=== PATIENT | male | born 1935 | race Caucasian/White ===

== ENCOUNTER 2020-06-28 12:12 | Emergency (ER) | payer MEDICARE, OTHER ==
[~2020-06-28] VITALS: Ht 170.2 cm; Wt 100.0 kg
--- NOTE | 2020-06-28 12:24 | PHYS DOC ---
General Adult EDM: Chief Complaint: MECHANICAL FALL HPI: HPI: 84 yo M PMH A. fib on Eliquis (no ASA), hypertension, hyperlipidemia and PTSD ([place] -takes melatonin to sleep), presents to the ed bibems after fall from standing on eliquis (concrete floor) with left temporal laceration, no LOC. 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 Was not on influence of any alcohol or drugs. Patient initially seen in ambulance as of trauma, complained of left-sided headache over site of bleeding (ed CT down - ems transferred pt to [facility] for ct images after my exam). Patient reevaluated in ED and complains of left medial epicondyle elbow pain, with normal range of motion. Also reports his neck feels sore when he moves his head in multiple directions-no focal reproducible pain on exam. Review of Systems: Review of Systems: Constitutional: Denies fever or chills Eyes: Denies change in visual acuity HENT: Denies nasal congestion or sore throat Respiratory: Denies cough or shortness of breath Cardiovascular: Denies chest pain or edema GI: Denies abdominal pain, nausea, vomiting, bloody stools or diarrhea : Denies dysuria or hematuria Musculoskeletal: Denies back pain or joint deformity Integument: Denies rash or diaphoresis Neurologic: Denies neck pain, dizziness, lightheadedness, focal weakness or sensory changes Endocrine: Denies polyuria or polydipsia Lymphatic: Denies swollen glands Psychiatric: Denies depression or anxiety Physical Exam: PE: Constitutional: Well developed, well nourished, no acute distress, non-toxic a ppearance. HENT: , no hemotympanum, no mastoid ecchymosis, no periorbital ecchymosis, no septal hematoma, normal oral cavity with no bleeding/lacerations, curved abrasion just superior and anterior to left ear-no active bleeding Eyes: PERRLA, EOMI, conjunctiva normal, no discharge, No hyphema Neck: Normal range of motion, supple, no midline tenderness Cardiovascular: S1/2 present, irregular rhythm Lungs & Thorax: Speaking in full sentences, bilateral equal chest rise, no tachypnea or increased work of breathing, no rib pain Abdomen: soft, no tenderness, no hip pain, ambulatory in no distress, no peritonitis or guarding, obese abdomen Skin: Warm, dry, no erythema, no rash. [] Back: No midline spinal tenderness or step-offs, no CVA tenderness. [] Extremities: No tenderness, no cyanosis, no lower extremity edema, focal left medial epicondyle pain with no deformity/abrasion/swelling Neurologic: Cranial nerves II through XII intact, GCS 15, normal motor function, normal sensory function, no focal deficits noted. [] Psychologic: Affect normal, judgement normal, mood normal. [] Nexus C-spine criteria are negative: There is no post midline tenderness, the patient is not intoxicated, there is a normal level of alertness, there are no focal neurologic deficits and there are no distracting injuries. EKG: EKG: Irregular rhythm atrial fibrillation at 60 bpm, left axis deviation, normal intervals, no T wave inversions, no ST elevations or ST depressions Radiology/Procedures: Radiology/Procedures: IMAGING REPORT Signed PATIENT: FARIHA HYMAN ACCOUNT: [id number] : 1935 LOCATION: ER AGE: 84 SEX: M EXAM STATUS: REG ER ORD. PHYSICIAN: YARITZA LIMA DO REASON: s/p fall on eliquis with head lcaeration, c/o headache PROCEDURE: CT HEAD AND CERVICAL SPINE WO EXAMINATION: CT HEAD AND C-SPINE WO CLINICAL HISTORY: Fall with head laceration, on Eliquis. C/o headache TECHNIQUE: Serial axial images without IV contrast were obtained from the vertex to the foramen magnum. CT of the cervical spine without IV contrast. Spiral, high resolution axial images were obtained from the skull base to the cervicothoracic junction with sagittal and coronal planar reconstructions. CT Dose Reduction Employed: One or more of the following individualized dose reduction techniques were utilized for this examination: 1. Automated exposure control 2. Adjustment of the mA and/or kV according to patient size 3. Use of iterative reconstruction technique. COMPARISON: None FINDINGS: BRAIN: Acute Change: Mild subcutaneous edema and small hematoma along the left parietal and temporal scalp. No evidence of an acute contusion or other acute parenchymal process. Hemorrhage: No evidence of acute intracranial hemorrhage. Mass Lesion/Mass Effect: No evidence of intracranial mass or extraaxial fluid collection. No significant mass effect. Chronic Change: Scattered patchy foci of hypoattenuation in the supratentorial white matter, nonspecific but likely represents mild microvascular ischemia. Atherosclerotic calcification of the anterior and posterior circulation. Parenchyma: Mild generalized volume loss. Parenchyma otherwise within normal limits for age. Ventricles: Ventricular enlargement concordant with degree of parenchymal volume loss. Paranasal Sinuses and Skull Base: Secretions and mucoperiosteal thickening in the right frontal, ethmoid, and right maxillary sinuses. No evidence of acute calvarial fracture. C-SPINE: Straightening normal cervical lordosis, likely positional. No evidence of acute fracture or spondylolisthesis. C1 only visualized on axial images between the brain and C-spine series, but C1 appears grossly intact. Multilevel degenerative disc disease greatest at C3-4 and C5-6. Moderate to severe multilevel facet arthropathy and neural foraminal narrowing. No evidence of significant osseous spinal stenosis. No prevertebral soft tissue swelling. Bilateral carotid and aortic atherosclerotic calcification. IMPRESSION: Mild subcutaneous edema and small hematoma left parietal and temporal scalp. No evidence of acute intracranial abnormality. Multifocal paranasal sinus disease as described. No evidence of acute osseous abnormality involving the cervical spine. Multilevel cervical degenerative disc disease, greatest at C3-4 and C5-6. Moderate to severe multilevel neural foraminal narrowing and facet arthropathy. Electronically signed by: Austin Hernández DO (06/28/2020 12:51 PM) [id number] DICTATED AND SIGNED BY: AUSTIN HERNÁNDEZ DO DATE: 06/28/20 1239 CC: PCP,NO; YARITZA LIMA DO ~MTH0 0 IMAGING REPORT Signed PATIENT: FARIHA HYMAN ACCOUNT: [id number] : 1935 LOCATION: ER AGE: 84 SEX: M EXAM STATUS: REG ER ORD. PHYSICIAN: YARITZA LIMA DO REASON: fall PROCEDURE: CHEST AP ONLY XR CHEST 1V 06/28/2020 12:45 PM INDICATION: Fall COMPARISON: None available TECHNIQUE: Portable frontal view of the chest is provided. FINDINGS: The cardiomediastinal silhouette is within normal limits. Lungs are clear. There are no significant pleural effusions. There is no pulmonary vascular congestion. No pneumothorax. No suspicious osseous abnormality. IMPRESSION: There is no acute cardiopulmonary process. Electronically signed by: Karina Perrin MD (06/28/2020 12:49 PM) [id number] DICTATED AND SIGNED BY: KARINA PERRIN MD DATE: 06/28/20 1249 CC: PCP,NO; YARITZA LIMA DO ~MTH0 0 IMAGING REPORT Signed PATIENT: FARIHA HYMAN ACCOUNT: [id number] : 1935 LOCATION: ER AGE: 84 SEX: M EXAM STATUS: REG ER ORD. PHYSICIAN: YARITZA LIMA DO REASON: fall on eliquis PROCEDURE: ELBOW LEFT 3V LEFT ELBOW AP LATERAL AND OBLIQUE Clinical Indication: Reason: fall, on eliquis / Comparison: None. Findings: There is no acute fracture or dislocation. No evidence of joint effusion. There is no radiopaque foreign body. No radiographically apparent soft tissue swelling is identified. IMPRESSION: No acute fracture or dislocation. Electronically signed by: Kin Richard MD (06/28/2020 1:56 PM) [facility] DICTATED AND SIGNED BY: KIN RICHARD MD DATE: 06/28/20 1354 CC: PCP,NO; YARITZA LIMA DO ~MTH0 0 Heart Score: Risk Factors: Risk Factors: DM, Current or recent (<one month) smoker, HTN, HLP, family history of CAD, obesity. Risk Scores: Score 0 - 3: 2.5% MACE over next 6 weeks - Discharge Home Score 4 - 6: 20.3% MACE over next 6 weeks - Admit for Clinical Observation Score 7 - 10: 72.7% MACE over next 6 weeks - Early Invasive Strategies Course & Med Decision Making: Course & Med Decision Making Pertinent Labs and Imaging studies reviewed. (See chart for details) Concern for accidental fall on ice with blunt head injury and hemostasis-did not require any suturing or kaleb. Left medial elbow pain, suspect contusion with from. No midline neck pain on reevaluation. Declines tetanus - recommended update with pmd. Will discharge home with strict ED return precautions were given for confusion, lethargy, severe headache, persistent nausea or vomiting or neurologic deficits-pt reports he will have someone observe him the next 24 hours and was educated on delayed ICH -understands return precautions. Encouraged urgent outpatient follow-up with PMD and neurology-if patient should develop persistent headaches/difficulties concentrating/concussive symptoms. Life-threatening processes were considered but are low suspicion at this time, given history, physical exam and ED workup. Pt was educated on all prescription medications and adverse effects. All patient's questions were answered and pt was stable at time of discharge. Life/limb-threatening differential includes but is not limited to, intracranial hemorrhage, diffuse axonal injury, spinal cord syndrome, unstable cervical fracture or SCIWORA, fractures or joint dislocations, neurovascular injuries, organ injury or laceration, pneumothorax, pneumoperitoneum, pericardial ta mponade, unstable pelvic fracture, compartment syndrome, flail chest or respiratory distress, burn injury or asphyxiation I spoken with the patient and her caregivers. I explained the patient's condition, diagnoses and treatment plan based on the information available to me at this time. I have answered the patient and her caregiver's questions and addressed any concerns. The patient and her caregivers have a good understanding of patient's diagnosis, condition and treatment plan as can be expected at this point. Vital signs have been stable. Patient's condition is stable and appropriate for discharge from the emergency department. Patient will pursue further outpatient evaluation with primary care physician or other designated or consulting physician as outlined in the discharge instructions. The patient and/or caregivers are agreeable to this plan of care and follow-up instructions have been explained in detail. The patient and/or caregivers have received these instructions in written form and have expressed an understanding of the discharge instructions. The patient and/or caregivers are aware that any significant change of condition or worsening of symptoms should prompt immediate return to this or the closest emergency department or call to 911. Derrick Disclaimer: Derrick Disclaimer: This electronic medical record was generated, in whole or in part, using a voice recognition dictation system. Departure Departure: Impression: Primary Impression: Blunt head trauma Additional Impressions: Fall from slipping on ice Elbow pain, left Abrasion of head Disposition: 01 DC HOME SELF CARE/HOMELESS Condition: STABLE Referrals: HERBER LAURENT MD FOLLOW UP WITH FAMILY MEDICINE: [facility], [address] [place] [address] [facility] [address] [facility] [place], Patient Instructions: Abrasion, [id number], Concussion and Brain Injury, Elbow Contusion, Head Injury, Adult Additional Instructions: FOLLOW UP WITH NEUROLOGY: Edwin Briones MD [address] [facility], [address] [place] [address] OR [address] [place] [address] EMERGENCY DEPARTMENT GENERAL DISCHARGE INSTRUCTIONS Thank you for coming to [facility] (ED) today and trusting us with you care. We trust that you had a positivie experience in our Emergency Department. If you wish to speak to the department management, you may call the director at [phone]. YOUR FOLLOW UP INSTRUCTIONS ARE FOLLOWS: 1. Do you have a private Doctor? If you do not have a private doctor, please ask for a resource list of physicians or clinics that may be able to assist you with f ollow up care. 2. The Emergency Physician has interpreted your x-rays. The X-Ray specialist will also review them. If there is a change in the findings, you will be notified in 48 hours when at all possible. 3. A lab test or culture has been done, your results will be reviewed and you will be notified if you need a change in treatment. ADDITIONAL INSTRUCTIONS AND INFORMATION: 1. Your care today has been supervised by a physician who is specially trained in emergency care. Many problems require more than one evaluation for a complete diagnosis and treatment. We recommend that you schedule your follow up appointment as recommended to ensure complete treatment of you illness or injury. If you are unable to obtain follow up care and continue to have a problem, or if your condition worsens, we recommend that you return to the ED. 2. We are not able to safely determine your condition over the phone nor are we able to give sound medical advice over the phone. For these safety reasons, if you call for medical advice we will ask you to come to the ED for further evaluation. 3. If you have any questions regarding these discharge instructions please call the ED at [phone]. SAFETY INFORMATION: In the interest of safety, wellness, and injury prevention; we encourage you to wear your sealbelt, if you smoke; quite smoking, and we encourage family to use a protect zoraida helmet for bicycling and other sporting events that present an increased risk for head injury. IF YOUR SYMPTOMS WORSEN OR NEW SYMPTOMS DEVELOP, OR YOU HAVE CONCERNS ABOUT YOUR CONDITION; OR IF YOUR CONDITION WORSENS WHILE YOU ARE WAITING FOR YOUR FOLLOW UP APPOINTMENT; EITHER CONTACT YOUR PRIMARY CARE DOCTOR, THE PHYSICIAN WHOSE NAME AND NUMBER YOU WERE GIVEN, OR RETURN TO THE ED IMMEDIATELY. [facility] DO Jun 28, 2020 12:24
[2020-06-28 12:48] LABS: HEMATOCRIT 48.8 % (39.0-53.0); HEMOGLOBIN 16.1 g/dL (13.0-17.5); RED BLOOD COUNT 5.18 x10^6/uL (4.30-5.70); RED CELL DISTRIBUTION WIDTH 15.7 % (11.5-14.5); WHITE BLOOD COUNT 8.6 x10^3/uL (4.0-11.0)
--- NOTE | 2020-06-28 12:52 | RAD ---
XR CHEST 1V 06/28/2020 12:45 PM INDICATION: Fall COMPARISON: None available TECHNIQUE: Portable frontal view of the chest is provided. FINDINGS: The cardiomediastinal silhouette is within normal limits. Lungs are clear. There are no significant pleural effusions. There is no pulmonary vascular congestion. No pneumothora x. No suspicious osseous abnormality. IMPRESSION: There is no acute cardiopulmonary process. Electronically signed by: Vernell Petersen MD (06/28/2020 12:49 PM) [id number]
--- NOTE | 2020-06-28 12:54 | RAD ---
EXAMINATION: CT HEAD AND C-SPINE WO CLINICAL HISTORY: Fall with head laceration, on Eliquis. C/o headache TECHNIQUE: Serial axial images without IV contrast were obtained from the vertex to the foramen magnum. CT of the cervical spine without IV contrast. Spiral, high resolution axial images were obtained from the skull base to the cervicothoracic junction with sagittal and coronal planar reconstructions. CT Dose Reduction Employed: One or more of the following individualized dose reduction techniques wer e utilized for this examination: 1. Automated exposure control 2. Adjustment of the mA and/or kV ac cording to patient size 3. Use of iterative reconstruction technique. COMPARISON: None FINDINGS: BRAIN: Acute Change: Mild subcutaneous edema and small hematoma along the left parietal and temporal scalp. No evidence of an acute contusion or other acute parenchymal process. Hemorrhage: No evidence of acute intracranial hemorrhage. Mass Lesion/Mass Effect: No evidence of intracranial mass or extraaxial fluid collection. No signific ant mass effect. Chronic Change: Scattered patchy foci of hypoattenuation in the supratentorial white matter, nonspeci fic but likely represents mild microvascular ischemia. Atherosclerotic calcification of the anterior and posterior circulation. Parenchyma: Mild generalized volume loss. Parenchyma otherwise within normal limits for age. Ventricles: Ventricular enlargement concordant with degree of parenchymal volume loss. Paranasal Sinuses and Skull Base: Secretions and mucoperiosteal thickening in the right frontal, ethm oid, and right maxillary sinuses. No evidence of acute calvarial fracture. C-SPINE: Straightening normal cervical lordosis, likely positional. No evidence of acute fracture or spondylol isthesis. C1 only visualized on axial images between the brain and C-spine series, but C1 appears kathy ssly intact. Multilevel degenerative disc disease greatest at C3-4 and C5-6. Moderate to severe multilevel facet a rthropathy and neural foraminal narrowing. No evidence of significant osseous spinal stenosis. No prevertebral soft tissue swelling. Bilateral carotid and aortic atherosclerotic calcification. IMPRESSION: Mild subcutaneous edema and small hematoma left parietal and temporal scalp. No evidence of acute int racranial abnormality. Multifocal paranasal sinus disease as described. No evidence of acute osseous abnormality involving the cervical spine. Multilevel cervical degenerative disc disease, greatest at C3-4 and C5-6. Moderate to severe multilevel neural foraminal narrowing and facet arthropathy. Electronically signed by: Austin Dove DO (06/28/2020 12:51 PM) [id number]
[2020-06-28 13:01] LABS: CALCIUM 9.5 mg/dL (8.5-10.1); CREATININE 1.2 mg/dL (0.7-1.3); GFR 57.8; POTASSIUM 4.4 mmol/L (3.5-5.1)
[2020-06-28 13:06] LABS: ALBUMIN 3.8 g/dL (3.4-5.0); TOTAL BILIRUBIN 1.2 mg/dL (0.2-1.0); TOTAL PROTEIN 7.8 g/dL (6.4-8.2)
--- NOTE | 2020-06-28 13:58 | RAD ---
LEFT ELBOW AP LATERAL AND OBLIQUE Clinical Indication: Reason: fall, on eliquis / Comparison: None. Findings: There is no acute fracture or dislocation. No evidence of joint effusion. There is no radiopaque foreign body. No radiographically apparent soft tissue swelling is identified. IMPRESSION: No acute fracture or dislocation. Electronically signed by: Kin Richard MD (06/28/2020 1:56 PM) [facility]
[2020-06-28 14:00] VITALS: BP 184/96
--- NOTE | 2020-06-28 16:36 | EKG ---
[address] [address] Test Date: 2020-06-28 Test Time: 12:31:08 Pat Name: FARIHA HYMAN Department: Room: Gender: M Ad Operations Coordinator: EVGENY : 1935 Requested By: YARITZA LIMA Order Number: [id number] Reading MD: Measurements Intervals [place] Rate: 60 P: OR: QRS: -24 QRSD: 98 T: 38 QT: 384 QTc: 388 Interpretive Statements IRREGULAR RHYTHM, NO P-WAVE FOUND LEFTWARD AXIS INCOMPLETE RIGHT BUNDLE BRANCH BLOCK OTHERWISE NORMAL ECG RI6.02 No previous ECG available for comparison
== END 2020-06-28 14:30 | disposition home or self-care (01) ==
LOC: ER 12:12
DX: S00.81XA Abrasion of other part of head, initial encounter (principal); I48.20 Chronic atrial fibrillation, unspecified; I10 Essential (primary) hypertension; W18.39XA Other fall on same level, initial encounter; Y93.89 Activity, other specified; Y92.89 Other specified places as the place of occurrence of the external cause; Y99.8 Other external cause status
CPT/HCPCS: 36415; 70450; 71045; 72125; 73080; 80053; 85027; 85610; 85730; 93005; 99285

== ENCOUNTER 2021-03-20 13:14 | Emergency (ER) | payer MEDICARE, OTHER ==
[~2021-03-20] VITALS: Ht 170.2 cm; Wt 86.0 kg
--- NOTE | 2021-03-20 13:42 | EKG ---
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
--- NOTE | 2021-03-20 13:45 | PHYS DOC ---
Past History Past Medical History: A-Fib, Hypertension Past Surgical History: Other Additional Past Surgical Histo: Right hip surgery, back surgery Alcohol Use: None General Adult EDM: Chief Complaint: SHORTNESS OF BREATH HPI: HPI: 85-year-old male presents with shortness of breath. The patient has not been sleeping as well notable last couple weeks. Last night he vomited at 3 and half hours of sleep. He noticed today that with exertion he feels like he just cannot get a full breath. He denies chest pain or diaphoresis. He has no diagnosed lung history. He does have atrial fibrillation. He has been taking all of his medications. Denies fever or chills. Review of Systems: Review of Systems: Constitutional: Denies fever or chills Eyes: Denies change in visual acuity HENT: Denies nasal congestion or sore throat Respiratory: shortness of breath, no cough. Cardiovascular: Denies chest pain or edema GI: Denies abdominal pain, nausea, vomiting, bloody stools or diarrhea : Denies dysuria Musculoskeletal: Denies back pain or joint pain Integument: Denies rash Neurologic: Denies headache, focal weakness or sensory changes Endocrine: Denies polyuria or polydipsia Lymphatic: Denies swollen glands Psychiatric: Poor sleep quality. Denies depression or anxiety Allergies: Allergies: Allergies Coded Allergies Type Severity Reaction Last Updated Verified oxycodone Adverse Reaction Intermediate Hallucinations 06/28/20 Yes Physical Exam: PE: Constitutional: Well developed, well nourished, no acute distress, non-toxic ap pearance. [] HENT: Normocephalic, atraumatic, bilateral external ears normal, oropharynx moist, no oral exudates, nose normal. [] Eyes: PERRLA, EOMI, conjunctiva normal, no discharge. [] Neck: Normal range of motion, no tenderness, supple, no stridor. [] Cardiovascular: Heart rate 78, regular rhythm, no murmur [] Lungs & Thorax: Bilateral breath sounds clear to auscultation [] Abdomen: Bowel sounds normal, soft, no tenderness, no masses, no pulsatile masses. [] Skin: Warm, dry, no erythema, no rash. [] Back: No tenderness, no CVA tenderness. [] Extremities: No tenderness, no cyanosis, no clubbing, ROM intact, no edema. [] Neurologic: Alert and oriented X 3, normal motor function, normal sensory function, no focal deficits noted. [] Psychologic: Affect normal, judgement normal, mood normal. [] Current Patient Data: Vital Signs: Vital Signs Date Time Temp Pulse Resp B/P (MAP) Pulse Ox O2 Delivery O2 Flow Rate FiO2 03/20/21 13:25 98.0 57 22 196/109 (138) 97 Room Air EKG: EKG: Irregular rhythm, rate 78, normal axis, no ST elevation or depression, atrial fibrillation, PVC. [] Radiology/Procedures: Radiology/Procedures: [] Impressions: XR CHEST 1V CLINICAL INDICATIONS: Shortness of breath. Findings: No acute lung infiltrate or pleural effusion or pulmonary edema or lung mass or pneumothorax is seen. The heart size, pulmonary vasculature, mediastinum and both ca are unremarkable. IMPRESSION: No acute radiographic abnormality is seen. Electronically signed by: Keron Segura MD (03/20/2021 2:13 PM) [id number] DICTATED AND SIGNED BY: KERON SEGURA MD DATE: 03/20/21 1409 CC: XIOMARA VELAZQUEZ DO; WENDY FOX ~MTH0 0 Heart Score: C/O Chest Pain: No Risk Factors: Risk Factors: DM, Current or recent (<one month) smoker, HTN, HLP, family history of CAD, obesity. Risk Scores: Score 0 - 3: 2.5% MACE over next 6 weeks - Discharge Home Score 4 - 6: 20.3% MACE over next 6 weeks - Admit for Clinical Observation Score 7 - 10: 72.7% MACE over next 6 weeks - Early Invasive Strategies Course & Med Decision Making: Course & Med Decision Making Pertinent Labs and Imaging studies reviewed. (See chart for details) The patient's EKG is unremarkable. His labs are unremarkable except for a proBNP of 1667. His chest x-ray is negative for acute findings. I suspect his lack of sleep has a lot to do with how he feels. The patient has been prescribed a water pill in the past but is not taking it now because one of the side effects is more sleeplessness. I have advised that he avoid sodium intake, wear compression socks, and see how things go over the next few days. If his shortness of breath does not improve with more sleep or gets worse he will need to follow-up with his primary doctor and reconsider treatment for fluid overload. He is stable for discharge at this time. [] Dragon Disclaimer: Dragon Disclaimer: This electronic medical record was generated, in whole or in part, using a voice recognition dictation system. Departure Departure: Impression: Primary Impression: Shortness of breath Disposition: 01 HOME / SELF CARE / HOMELESS Condition: STABLE Referrals: WENDY FOX (PCP) Patient Instructions: Peripheral Edema, Shortness of Breath, [id number] XIOMARA VELAZQUEZ DO Mar 20, 2021 13:45
[2021-03-20 14:09] LABS: BASO # 0.1 x10^3/uL (0.0-0.2); BASO % 1 % (0-3); EOS # 0.4 x10^3/uL (0.0-0.7); EOS % 4 % (0-3); HEMATOCRIT 46.4 % (39.0-53.0); HEMOGLOBIN 15.2 g/dL (13.0-17.5); LYMPH # 1.7 x10^3/uL (1.0-4.8); LYMPH % 16 % (24-48); MEAN CORPUSCULAR HEMOGLOBIN 32 pg (25-35); MEAN CORPUSCULAR HGB CONC 33 g/dL (31-37); MEAN CORPUSCULAR VOLUME 97 fL (79-100); MONO # 0.7 x10^3/uL (0.0-1.1); MONO % 7 % (0-9); NEUT # 7.7 x10^3uL (1.8-7.7); NEUT % 73 % (31-73); PLATELET COUNT 172 x10^3/uL (140-400); RED CELL DISTRIBUTION WIDTH 15.4 % (11.5-14.5); WHITE BLOOD COUNT 10.6 x10^3/uL (4.0-11.0)
[2021-03-20 14:11] LABS: CALCIUM 9.9 mg/dL (8.5-10.1); CREATININE 1.2 mg/dL (0.7-1.3); GFR 57.7; POTASSIUM 4.3 mmol/L (3.5-5.1)
--- NOTE | 2021-03-20 14:15 | RAD ---
XR CHEST 1V CLINICAL INDICATIONS: Shortness of breath. Findings: No acute lung infiltrate or pleural effusion or pulmonary edema or lung mass or pneumothora x is seen. The heart size, pulmonary vasculature, mediastinum and both ca are unremarkable. IMPRESSION: No acute radiographic abnormality is seen. Electronically signed by: Gomez Segura MD (03/20/2021 2:13 PM) [id number]
[2021-03-20 14:17] LABS: ALBUMIN/GLOBULIN RATIO 1.1 (1.0-1.7); TOTAL BILIRUBIN 1.2 mg/dL (0.2-1.0); TOTAL PROTEIN 7.6 g/dL (6.4-8.2)
[2021-03-20 14:47] VITALS: BP 180/80
== END 2021-03-20 14:56 | disposition home or self-care (01) ==
LOC: ER 13:14
DX: R06.02 Shortness of breath (principal); I10 Essential (primary) hypertension
CPT/HCPCS: 36415; 71045; 80053; 83880; 84484; 85025; 93005; 99285-25

== ENCOUNTER 2021-08-14 14:03 | Emergency (ER) | payer OTHER ==
[~2021-08-14] VITALS: Ht 170.2 cm; Wt 86.0 kg
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
[2021-08-14] MEDS ORDERED: ACET1TAB56 PO (15:26)
[2021-08-14] MEDS ORDERED: CYCL5TAB PO (15:26)
[2021-08-14] MEDS ORDERED: HYDROcodone/APAP 7.5/325MG 1 TAB TABLET PO ONE (15:30)
== END 2021-08-14 15:38 | disposition home or self-care (01) ==
LOC: ER 14:03
DX: M25.561 Pain in right knee (principal); M25.512 Pain in left shoulder; I48.91 Unspecified atrial fibrillation; I10 Essential (primary) hypertension; Z88.5 Allergy status to narcotic agent; V43.52XA Car driver injured in collision with other type car in traffic accident, initial encounter; Y93.I9 Activity, other involving external motion; Y92.89 Other specified places as the place of occurrence of the external cause; Y99.8 Other external cause status
CPT/HCPCS: 70450; 73030; 73562; 99284

== ENCOUNTER 2021-08-18 13:32 | Emergency (ER) | payer OTHER, MEDICARE ==
[~2021-08-18] VITALS: Ht 180.3 cm; Wt 94.4 kg
[~2021-08-18 13:32] MED LIST: ACET1TAB56 PO; CYCL5TAB PO
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
[2021-08-18] MEDS ORDERED: KETOROLAC 60 MG/2 ML VIAL. IM ONE (14:15)
[2021-08-18 14:55] VITALS: BP 131/70
== END 2021-08-18 14:55 | disposition home or self-care (01) ==
LOC: ER 13:32
DX: S40.012A Contusion of left shoulder, initial encounter (principal); I48.91 Unspecified atrial fibrillation; I10 Essential (primary) hypertension; E78.00 Pure hypercholesterolemia, unspecified; F41.9 Anxiety disorder, unspecified; Z87.891 Personal history of nicotine dependence; Z88.5 Allergy status to narcotic agent; V89.2XXA Person injured in unspecified motor-vehicle accident, traffic, initial encounter; Y93.89 Activity, other specified; Y92.89 Other specified places as the place of occurrence of the external cause; Y99.8 Other external cause status
CPT/HCPCS: 96372; 99283; J1885